=== PATIENT | female | born 1930 | race Hispanic/Latino ===

== ENCOUNTER 2019-04-21 21:04 | Inpatient (IN) | payer MEDICARE, BC, MEDICAID ==
[2019-04-21 22:09] LABS: ALT (SGPT) 21 U/L (8-55); AST (SGOT) 27 U/L (5-34); Albumin 3.4 g/dL (3.4-4.8); Alkaline Phosphatase 66 U/L (40-150); Anion Gap 12 mmol/L (10-20); BUN (Urea Nitrogen) 70 mg/dL (9.8-20.1); Bilirubin, Total 0.2 mg/dL (0.2-1.2); Calc. Creatinine Clearance 0 mL/min (70-130); Calcium 9.2 mg/dL (7.8-10.44); Carbon Dioxide 15 mmol/L (23-31); Chloride 115 mmol/L (98-107); Estimated GFR-MDRD 39; Globulin 2.6 g/dL (2.4-3.5); Glucose 78 mg/dL (83-110); Potassium 6.2 mmol/L (3.5-5.1); Sodium 136 mmol/L (136-145)
--- NOTE | 2019-04-21 22:22 | RAD ---
3 views left hand: 04/21/2019 COMPARISON: None HISTORY: Pain FINDINGS: There is atherosclerotic calcification at the level of the wrist. Scattered degenerative ch anges are noted involving the distal interphalangeal joints, most prominently involving the fifth digit. There is mild degenerative change at the first metatarsal-phalangeal joint. There is no displaced fracture or evidence of dislocation seen. IMPRESSION: No acute osseous abnormality. Chronic findings as described above.
[2019-04-21 22:23] LABS: Anisocytosis SLIGHT = 6-15 cells (100X) (0-5/hpf); Band 16 % (5-11); Lymphocytes 33 % (21-51); MDiff Complete? YES; Mean Corpuscular HGB CONC 30.1 g/dL (32.0-36.0); Mean Corpuscular Hemoglobin 35.6 pg (27.0-31.0); Mean Platelet Volume 7.6 fL (7.4-10.4); Monocytes 7 % (0-10); Neutrophil 43 % (42-75); Nucleated RBC 3 % (0); Platelet Count 245 thou/uL (130-400); Platelet Morphology Comment Appears Adequate; RBC Distribution Width 14.8 % (11.5-14.5); Red Blood Cell (RBC) Count 1.68 mill/uL (4.20-5.40); White Blood Cell (WBC) Count 3.3 thou/uL (4.8-10.8)
--- NOTE | 2019-04-21 22:24 | RAD ---
2 views left forearm: 04/21/2019 COMPARISON: None HISTORY: Pain FINDINGS: No fracture or dislocation. No radiopaque foreign body or subcutaneous gas. There is extens nancy atherosclerotic calcification within the left forearm. IMPRESSION: No acute findings.
--- NOTE | 2019-04-21 22:24 | RAD ---
2 views left humerus: 04/21/2019 COMPARISON: None HISTORY: Pain FINDINGS: No fracture or dislocation. No radiopaque foreign body or subcutaneous gas. There is an inc ompletely imaged transvenous pacing device. IMPRESSION: No acute findings.
[2019-04-21 22:32] LABS: CKMB 15.2 ng/mL (0-6.6)
[2019-04-22] MEDS ORDERED: Calcium Gluconate 4.6 MEQ in Sodium Chloride 0.9% 100 ML IVPB SCH (00:56)
[2019-04-22] MEDS ORDERED: Dextrose 50% Abboject 50 ML SYRINGE SLOW IVP SCH ×2 (00:58→13:00)
[2019-04-22 01:49] LABS: Troponin I 0.034 ng/mL (< 0.028)
[2019-04-22 01:53] LABS: Bacteria/HPF 4+ HPF (None Seen); Bilirubin Negative (Negative); Blood, Urine Negative (Negative); Clarity Turbid (Clear); Glucose, Urine (Dipstick) Normal (Negative); Leukocyte 500 Leu/uL (Negative); Nitrite Negative (Negative); Protein, Urine (Dipstick) 10 mg/dL (Neg-Trace); RBC/HPF 0-3 HPF (0-3); Squamous Epithelial None Seen HPF (0-3); WBC/HPF Greater than 50 HPF (0-3); Yeast-Budding 1+ HPF (None Seen)
[2019-04-22] MEDS ORDERED: Ondansetron PF 4 MG/2 ML Vial IVP PRN (04:06)
[2019-04-22] MEDS ORDERED: Acetaminophen 650 MG Suppository PR PRN (04:06)
[2019-04-22] MEDS ORDERED: Acetaminophen 325 MG TAB PO PRN (04:06)
[2019-04-22] MEDS ORDERED: Ondansetron ODT 4 MG TAB PO PRN (04:06)
[2019-04-22] MEDS ORDERED: HumaLOG 300 UNITS/3 ML VIAL SC PRN (04:08)
[2019-04-22] MEDS ORDERED: Dextrose 5% in Water 1,000 ML IV PRN (04:08)
[2019-04-22 04:22] LABS: Troponin I 0.023 ng/mL (< 0.028)
[2019-04-22] MEDS: cefTRIAXone\\ROCEPHIN 1 GM in Sodium Chloride 0.9% 100 ML IVPB SCH (06:21)
[2019-04-22 07:02] VITALS: BMI 24.0
[2019-04-22] MEDS ORDERED: Enoxaparin Sodium 40 MG/0.4 ML SYRINGE SC SCH ×2 (09:00)
[2019-04-22 10:46] LABS: Reticulocyte Count 3.3 % (0.5-1.5)
--- NOTE | 2019-04-22 10:46 | RAD ---
PORTABLE CHEST: HISTORY: Respiratory distress. COMPARISON: 06/13/2014 study. FINDINGS: Heart size is enlarged. There are postop sternotomy changes and a pacemaker present. There is some linear scarring in the left base. There is no focal infiltrative process or signs of failure. The b ones are demineralized. IMPRESSION: Cardiomegaly with some chronic lung change, stable chest. POS: [facility]
[2019-04-22 11:05] LABS: Anion Gap 13 mmol/L (10-20); BUN (Urea Nitrogen) 68 mg/dL (9.8-20.1); Calc. Creatinine Clearance 22 mL/min (70-130); Calcium 8.8 mg/dL (7.8-10.44); Carbon Dioxide 12 mmol/L (23-31); Chloride 119 mmol/L (98-107); Estimated GFR-MDRD 37; Glucose 64 mg/dL (83-110); Iron 62 ug/dL (50-170); Iron Binding Capacity, Total 238 mcg/dL (265-497); Potassium 5.9 mmol/L (3.5-5.1); Sodium 138 mmol/L (136-145)
[2019-04-22 11:09] LABS: Anisocytosis SLIGHT = 6-15 cells (100X) (0-5/hpf); Band 17 % (5-11); Burr Cells SLIGHT = 2-5 cells (100X) (0-1/hpf); Hemoglobin 9.1 g/dL (12.0-16.0); Lymphocytes 16 % (21-51); MDiff Complete? YES; Mean Corpuscular Hemoglobin 32.9 pg (27.0-31.0); Mean Platelet Volume 8.1 fL (7.4-10.4); Monocytes 4 % (0-10); Neutrophil 63 % (42-75); Platelet Count 187 thou/uL (130-400); Poikilocytosis SLIGHT = 6-15 cells (100X) (0-5/hpf); RBC Distribution Width 19.9 % (11.5-14.5); Red Blood Cell (RBC) Count 2.75 mill/uL (4.20-5.40); White Blood Cell (WBC) Count 4.4 thou/uL (4.8-10.8)
[2019-04-22 11:29] LABS: Ferritin 56.18 ng/mL (10-291); Free T4 (Free Thyroxine) 0.78 ng/dL (0.70-1.48)
[2019-04-22 11:44] LABS: Folate (Folic Acid) 15.5 ng/mL (7.0-31.4)
[2019-04-22] MEDS ORDERED: Insulin Regular 300 UNITS/3 ML VIAL IVP SCH (12:45)
[2019-04-22] MEDS ORDERED: Albuterol Sulfate 2.5 mg/3 ml Neb NEB SCH (12:45)
--- NOTE | 2019-04-22 13:43 | HP ---
PRIMARY CARE PROVIDER: Dr. Rogelio Singh. CHIEF COMPLAINT: Decreased hemoglobin. HISTORY OF PRESENT ILLNESS: Ms. Hammond is an 88-year-old lady, who was seen at [facility] on April 22, 2019 after transfer from [facility]. She is currently unable to provide any history. Collateral history was obtained from review of medical record, discussion with emergency room physician and with the patient's son, Jeremiah by the bedside. Ms. Hammond has been at [facility] for the last 6 months. Over the last couple of months, she has been essentially bed bound and is ambulated with wheelchair. Her son reports that she holds conversation. She had blood work done yesterday and was found to have low hemoglobin. She was , therefore, sent to the emergency room. In the emergency room, she was found to be hyperkalemic, hypothermic, hypotensive, and anemic. She was referred to Hospitalist Service for further management and admission. REVIEW OF SYSTEMS: Could not be completed. PAST MEDICAL HISTORY: Coronary artery disease, status post coronary artery bypass graft in 2004, diabetes mellitus type 2, hypertension, hypothyroidism, dyslipidemia, and degenerative joint disease. PAST SURGICAL HISTORY: Coronary artery bypass graft, left carpal tunnel surgery , hernia repair, hysterectomy, and pacemaker placement. ALLERGIES: NO KNOWN DRUG ALLERGIES. CURRENT MEDICATIONS: These need to be clarified, but appeared to include: 1. [place]. 2. Calcium carbonate. 3. Plavix. 4. Ezetimibe/simvastatin. 5. Ferrous gluconate. 6. Fish oil. 7. Levothyroxine. 8. Metformin. 9. Nifedipine. 10. Pioglitazone. 11. Sitagliptin. SOCIAL HISTORY: No history of tobacco use, alcohol use, or recreational drug use. FAMILY HISTORY: No family history of premature coronary artery disease. CODE STATUS: I discussed her code status with her son, Jeremiah. She is full code. PHYSICAL EXAMINATION: GENERAL: On examination, Ms. Hammond is sleepy, not waking up to voice or touch. VITAL SIGNS: Blood pressure is 122/45, pulse 60, respiratory rate 13, and oxygen saturation 100% on room air. She is hypothermic, with a temperature of 97.3 degrees Fahrenheit. EYES: No scleral icterus. No conjunctival pallor. ENT: Dry mucosal membranes. No oropharyngeal erythema or exudates. NECK: Supple and nontender. Trachea is midline. RESPIRATORY: Accessory muscles of breathing are not active. Chest wall movements are symmetric bilaterally. Lungs are clear to auscultation without wheeze, rhonchi, or crepitations. CARDIOVASCULAR: S1 and S2 are heard, regular. Peripheral pulses palpable. No carotid bruit. No pericardial rub. ABDOMEN: Soft, nontender, bowel sounds heard. NEUROLOGIC: Full neurologic examination was not possible secondary to the patient's noncooperation. There is no facial droop. The patient is moving all 4 extremities. Deep tendon reflexes 2+, plantars downgoing bilaterally. MUSCULOSKELETAL: The patient is moving all 4 extremities. SKIN: No rashes or subcutaneous nodules. LYMPHATIC: No cervical lymphadenopathy. PSYCHIATRIC: Unable to assess mood, affect, or orientation to person, place, or time. LABORATORY DATA: Labs and investigations were reviewed. I reviewed her electrocardiogram, which shows atrial paced rhythm, no ST changes to suggest an acute coronary syndrome. I also reviewed her chest x-ray, which does not show any pulmonary infiltrates. She has cardiomegaly. She has leukopenia with 3300 white cells, macrocytic anemia with hemoglobin 6, normal platelet count, normal sodium , elevated potassium of 6.2, elevated blood urea nitrogen of 70, elevated creatinine of 1.30, normal lactic acid, normal LFTs and indeterminate troponin-I of 0.034. TSH is elevated at 7.5115. Lactic acid is normal. Urinalysis is positive for leukocyte esterase, bacteria and yeast. ASSESSMENT AND PLAN: Ms. Hammond is a pleasant 88-year-old lady, who was seen at [facility] on April 22, 2019. Her problem list includes: 1. Sepsis: Ms. Hammond is presenting with sepsis, most likely secondary to urinary tract infection. She will be admitted to the hospital for further management. We will provide her with intravenous hydration. She is on a Benji Hugger blanket for hypothermia. 2. Urinary tract infection: She has been started on ceftriaxone, which I will continue. We will await urine cultures. 3. Hyperkalemia: We will recheck potassium. If hyperkalemia is true, we will provide Kayexalate, insulin and beta agonists. 4. Diabetes mellitus, type 2: We will start the patient on Accu-Cheks and insulin sliding scale. 5. Indeterminate troponin: Most likely secondary to demand ischemia, we will trend troponins. 6. Hypothyroidism: TSH is elevated. We will check free T4 and adjust Synthroid dose if needed. 7. Dyslipidemia: We will continue statin after clarifying home medications. 8. Anemia: Chronicity is unclear. We will check iron studies. We will also check reticulocyte count. We will check vitamin B12 and folic acid levels. Further workup depending on the outcome of this test. Many thanks for allowing me to participate in your patient's care. Please feel free to contact me with any questions or concerns. LEVEL OF RISK: High. LEVEL OF COMPLEXITY: High. Job ID: [id number] MTDD
[2019-04-22] MEDS: Dextrose 50% Abboject 50 ML SYRINGE SLOW IVP PRN (13:49)
[2019-04-22] MEDS ORDERED: Cyanocobalamin 1000 MCG/ML VIAL IM SCH (14:15)
[2019-04-22] MEDS ORDERED: Furosemide 40 MG/4 ML VIAL SLOW IVP SCH (14:15)
--- NOTE | 2019-04-22 14:46 | CON ---
DATE OF CONSULTATION: 04/22/2019 SERVICE: Pulmonary Medicine. REASON FOR CONSULTATION: ICU patient. HISTORY OF PRESENT ILLNESS: The patient is an 88-year-old female, who lives in the [place]. She has very poor functional status at baseline. She lives in a bed, and sometimes she gets into a wheelchair in order to get to meals. That being said, she requires one and sometimes two people to assist her at baseline. In this usual state of health, she started having increasing mental status changes when brought to the emergency department. She was found to be anemic. Overnight, she was given some blood. She had an appropriate rise in her hemoglobin with that blood. She had a urinary tract infection and was possibly consistent with the UTI. As such, she was given some medications for that. She remains a little bit encephalopathic. She cannot provide additional elements of the history at this point. She had no complaints of shortness of breath. PAST MEDICAL HISTORY: 1. Coronary artery disease. 2. Type 2 diabetes mellitus. 3. Hypertension. 4. Dyslipidemia. 5. Hypothyroidism. 6. Degenerative joint disease. PAST SURGICAL HISTORY: 1. Coronary artery bypass graft. 2. Carpal tunnel surgery, left. 3. Herniorrhaphy. 4. Hysterectomy. 5. Pacemaker placement. FAMILY HISTORY: Noncontributory. SOCIAL HISTORY: She lives in the [place]. She has no exposure to chemicals, dust , asbestos, or tuberculosis currently. ALLERGIES: NO KNOWN DRUG ALLERGIES. MEDICATIONS: List of her inpatient medications was reviewed and heavily modified. REVIEW OF SYSTEMS: This cannot be obtained as the patient is encephalopathic. PHYSICAL EXAMINATION: VITAL SIGNS: Afebrile. She is actually hypothermic yesterday with a temperature of 96.7. Pulse 62, blood pressure 112/53, respirations 14, and saturation 99% on room air. GENERAL: The patient is encephalopathic. She appears to be in no distress. HEENT: Normocephalic and atraumatic. Sclerae white. Conjunctivae pink. Oral mucosa is moist without lesions. LUNGS: Decent air entry. Extensive crackling is present. There is no prolonged expiratory phase or wheezing appreciated. HEART: Normal rate. Regular. ABDOMEN: Soft, nontender, and nondistended. Bowel sounds are positive. MUSCULOSKELETAL: No cyanosis or clubbing. There is 3+ pitting throughout. NEUROLOGIC: Grossly nonfocal. She demonstrates diffuse encephalopathy. LABORATORY DATA: WBC 4.4, hemoglobin 9.1 (above 6.0, baseline 9). WBC 4.4, platelets 187,000. Band count is 17% on top of 63% neutrophils. Creatinine 1.34 (baseline 1.1). Liver function studies are otherwise unremarkable. Troponin is downtrending to 0.023. T4 0.7, folate 15, B12 of 350, and TSH 7.5. Blood sugar is 60. Urinalysis is positive for leukocyte esterase, and significant pyuria with 4+ bacteria. Urine culture is negative to date. Stool for occult blood is unremarkable. IMAGING STUDIES: Forearm x-ray, hand x-ray and humerus x-ray are negative for acute osseous abnormalities. Chest x-ray demonstrates no acute cardiopulmonary abnormalities. ASSESSMENT: 1. Acute hypoxic respiratory failure. 2. Severe sepsis. 3. Urinary tract infection. 4. Anemia, likely chronic. 5. Hvj-EG-acoxeshlc myocardial infarction, resolved. DISCUSSION AND PLAN: I will give the patient a couple doses of Lasix as she is profoundly volume overloaded and just got 2 units of blood. We will continue our empiric antibiotics directed urinary tract infections. We will trend the potassium through time to make certain it is trending downward. Pulmonary/Critical Care will continue to follow very closely. She will need to remain in the IMCU for the time being. I will give her a dose of vitamin B12. 70 minutes have been devoted to this patient in various activities. I personally reviewed all imaging studies and laboratory data noted within this document. For fifty percent of this time, I was interacting with the patient at the bedside or coordinating care with the care team. For the remainder of the time I was immediately available to the patient in the hospital unit. Job ID: [id number] [facility]
[2019-04-22 16:17] LABS: Potassium 5.8 mmol/L (3.5-5.1)
[2019-04-22] MEDS: Heparin 5,000 UNITS/ML VIAL SC SCH (20:18)
[2019-04-23] MEDS: Dextrose 50% Abboject 50 ML SYRINGE SLOW IVP PRN (00:14)
[2019-04-23] MEDS: cefTRIAXone\\ROCEPHIN 1 GM in Sodium Chloride 0.9% 100 ML IVPB SCH (02:47)
[2019-04-23] MEDS ORDERED: Furosemide 40 MG/4 ML VIAL SLOW IVP SCH ×2 (06:00→15:00)
[2019-04-23 06:36] LABS: Anion Gap 12 mmol/L (10-20); BUN (Urea Nitrogen) 65 mg/dL (9.8-20.1); Calc. Creatinine Clearance 21 mL/min (70-130); Calcium 9.5 mg/dL (7.8-10.44); Carbon Dioxide 16 mmol/L (23-31); Chloride 118 mmol/L (98-107); Estimated GFR-MDRD 36; Glucose 76 mg/dL (83-110); Magnesium 1.4 mg/dL (1.6-2.6); Phosphorus 4.2 mg/dL (2.3-4.7); Potassium 5.8 mmol/L (3.5-5.1); Sodium 140 mmol/L (136-145)
[2019-04-23 06:41] LABS: #Lymphocytes 1.2 thou/uL (1.20-3.40); #Monocytes 0.4 thou/uL (0.11-0.59); #Neutrophils 3.4 thou/uL (1.40-6.50); %Eosinophils 0.2 % (0.0-10.0); %Lymphocytes 23.1 % (21.0-51.0); %Monocytes 7.5 % (0.0-10.0); %Neutrophils 69.2 % (42.0-75.0); Anisocytosis SLIGHT = 6-15 cells (100X) (0-5/hpf); Hemoglobin 9.3 g/dL (12.0-16.0); MDiff Complete? YES; Macrocytosis SLIGHT = 6-15 cells (100X) (0-5/hpf); Mean Corpuscular HGB CONC 31.5 g/dL (32.0-36.0); Mean Corpuscular Hemoglobin 32.7 pg (27.0-31.0); Platelet Count 202 thou/uL (130-400); RBC Distribution Width 20.4 % (11.5-14.5); Red Blood Cell (RBC) Count 2.84 mill/uL (4.20-5.40)
[2019-04-23] MEDS: Heparin 5,000 UNITS/ML VIAL SC SCH (08:35)
[2019-04-23] MEDS ORDERED: Magnesium 2 GM/50 ML 2 GM in Premix Bag 1 BAG IVPB SCH (12:15)
[2019-04-23] MEDS ORDERED: Dextrose 5 %-0.45 % NaCl 1,000 ML IV SCH (12:15)
[2019-04-23] MEDS ORDERED: Magnesium Sulfate 2 GM in Sodium Chloride 0.9% 100 ML IVPB SCH (12:15)
--- NOTE | 2019-04-23 12:39 | PRG ---
DATE OF SERVICE: 04/23/2019 SERVICE: Pulmonary Medicine. INTERVAL HISTORY: The patient's blood pressure has firmed up very nicely. She has no complaints of chest pain, fevers, cough, nausea, or vomiting. She had an appropriate response to the hemoglobin from the blood from 2 days ago, and has not dropped back down. She cannot provide any additional elements of the history. Otherwise, there were no significant events. PHYSICAL EXAMINATION: VITAL SIGNS: Afebrile. Pulse 60, blood pressure 130/74, respirations 14, and saturation 100% on room air. GENERAL: The patient is encephalopathic, but at her baseline. HEENT: Normocephalic and atraumatic. Sclerae are white. Conjunctivae are pink. Oral mucosa is moist without lesions. LUNGS: Decent air entry. No crackles are present. HEART: Normal rate, regular. ABDOMEN: Soft, nontender, and nondistended. Bowel sounds are positive. MUSCULOSKELETAL: No cyanosis or clubbing. There is pitting in the bilateral lower extremities. LABORATORY DATA: WBC 5.0, hemoglobin 9.3, and platelets 202,000. Creatinine 1.4 and stable, BUN 65 and stable. Potassium 5.8, which remains elevated. Magnesium 1.4, phosphorus 4.2. Urinalysis is unremarkable. Blood cultures x2 are unremarkable. Urine culture is negative. ASSESSMENT: 1. Acute hypoxic respiratory failure, resolved. 2. Severe sepsis. 3. Urinary tract infection. 4. Anemia, chronic. 5. Mio-WU-wvehplzro myocardial infarction, resolved. DISCUSSION AND PLAN: We will continue supportive measures through time. The patient's potassium remains slightly elevated. I will replace the magnesium. From my perspective, the patient is stable for transition out of the ICU to the telemetry unit. Since we cannot place an NG tube currently, we can give her the Kayexalate by rectum. Job ID: [id number]
[2019-04-23 13:02] LABS: Potassium 5.7 mmol/L (3.5-5.1)
[2019-04-23] MEDS ORDERED: Morphine 2 MG/ML SYRINGE SLOW IVP PRN (15:16)
--- NOTE | 2019-04-23 16:39 | PDOC.PN ---
- Subjective Encounter Start Date: 04/23/19 Encounter Start Time: 10:20 Pt seen for followup re: sepsis. Pt is not answering questions, unable to complete ROS. - Objective Resuscitation Status - Order Detail: 04/23/19 11:47 Resuscitation Status Routine Resuscitation Status: DNAR: NO Resuscitation Discussed with: susan ROWLEY Reviewed: Yes Vital Signs & Weight: Vital Signs (12 hours) Temp Resp Pulse Ox 04/23/19 12:00 12 04/23/19 11:16 97.6 F 04/23/19 08:05 100 04/23/19 07:27 97.6 F Weight Admit Weight 103 lb 6.4 oz Weight 103 lb 6.4 oz Most Recent Monitor Data Heart Rate from ECG 60 NIBP 112/52 NIBP BP-Mean 72 Respiration from ECG 11 SpO2 100 I&O: 04/22/19 04/23/19 04/24/19 06:59 06:59 06:59 Intake Total 0 100 Output Total 900 900 Balance 0 -800 -900 Result Diagrams: 04/23/19 06:01 04/23/19 12:12 Additional Labs: Accuchecks 04/23/19 04/23/19 04/23/19 10:36 05:34 01:18 POC Glucose 73 74 144 H 04/23/19 04/22/19 00:01 16:40 POC Glucose 54 L* 115 H EKG Reviewed by me: Yes (Tele: NSR) Phys Exam - Physical Examination Constitutional: NAD Dry mucosae Neck: supple Respiratory: clear to auscultation bilateral Cardiovascular: RRR Gastrointestinal: soft Neurological: moves all 4 limbs Deviation from normal: Unable to assess Dx/Plan (1) Sepsis Code(s): A41.9 - SEPSIS, UNSPECIFIED ORGANISM Status: Acute Comment: secondary to UTI (2) UTI (urinary tract infection) Status: Acute Comment: on IV antibiotics (3) Anemia Code(s): D64.9 - ANEMIA, UNSPECIFIED Status: Acute Comment: s/p pRBC transfusion - Plan * . Goals of care now for comfort measures only. All active treatments to be discontinued. Hospice service will reassess tomorrow. Review of Systems - Medications/Allergies Allergies/Adverse Reactions: Allergies Allergy/AdvReac Type Severity Reaction Status Date / Time No Known Drug Allergies Allergy Verified 04/22/19 08:00 Medications: Current Medications Acetaminophen (Tylenol) 650 mg PO Q4H PRN PRN Reason: Headache/Fever/Mild Pain (1-3) Acetaminophen (Tylenol) 650 mg NE Q4H PRN PRN Reason: Headache/Fever/Mild Pain (1-3) Furosemide (Lasix) 40 mg SLOW IVP 1500 MACKENZIE Stop: 04/23/19 17:00 Last Admin: 04/23/19 15:01 Dose: 40 mg Dextrose/Water (D5w) 1,000 mls @ 0 mls/hr IV .Q0M PRN PRN Reason: Hypoglycemia Morphine Sulfate (Morphine) 2 mg SLOW IVP Q4H PRN PRN Reason: Moderate to Severe Pain (6-10) Ondansetron HCl (Zofran) 4 mg IVP Q6H PRN PRN Reason: Nausea/Vomiting
--- NOTE | 2019-04-23 16:44 | PDOC.FMACP ---
Advance Care Planning - Problem (1) Sepsis Status: Acute Code(s): A41.9 - SEPSIS, UNSPECIFIED ORGANISM (2) UTI (urinary tract infection) Status: Acute (3) Anemia Status: Acute Code(s): D64.9 - ANEMIA, UNSPECIFIED - Note Participants: family Summary: Advanced Care Planning was discussed. The diagnosis, prognosis and goals of care were discussed. Appropriate forms and documentation to accomplish the goals of care were discussed. All questions were answered. The Palliative Care Team is engaged to assist with completion of any outstanding forms that are needed. Time Spent (mins): 20
[2019-04-24 10:52] VITALS: BP 98/62; TEMP 97.5
--- NOTE | 2019-04-24 10:56 | PRG ---
DATE OF SERVICE: 04/24/2019 SERVICE: Pulmonary Medicine. INTERVAL HISTORY: The patient is doing really well from respiratory standpoint. She cannot provide any additional elements of the history. Late yesterday evening, the patient talked to Palliative Care. Ultimately, she and the family had decided transitioning over to comfort care only. As such, all interventions were discontinued including labs and imaging studies. Medications were discontinued and she is going to be comfort care only from this point forward. They do appreciate and that mean, she will be passing away at some point during this hospital stay. If she continues to do well, she may be discharged under the care of hospice. PHYSICAL EXAMINATION: VITAL SIGNS: Afebrile, pulse 62, blood pressure 106/75, respirations 12, and saturation 100% on room air. GENERAL: The patient is awake. She appears comfortable. She is in no apparent distress. HEENT: Normocephalic and atraumatic. Sclerae are white. Conjunctivae are pink. Oral mucosa is dry. LUNGS: Decent air entry. Minimal rhonchi are present. No crackles or wheezing appreciated. HEART: Normal rate, regular. ABDOMEN: Soft, nontender, and nondistended. Bowel sounds are positive. MUSCULOSKELETAL: No cyanosis or clubbing. There is trace pitting in bilateral lower extremities. NEUROLOGIC: Grossly nonfocal. ASSESSMENT: 1. Acute hypoxic respiratory failure, resolved. 2. Severe sepsis. 3. Urinary tract infection. 4. Non-ST elevation myocardial infarction secondary to demand. 5. Anemia, chronic. 6. Advanced age with severe debility. DISCUSSION AND PLAN: The patient is going to be comfort care only. At this point, she has no further requirements for Pulmonary/Critical Care opinion and I will sign off. Please call with additional questions or concerns through time. Job ID: [id number]
--- NOTE | 2019-04-24 15:34 | PDOC.PALCO ---
Palliative Care Consult - Consult Details Requesting Physician: Dr Mathew Reason for Consult: goals of care, assistance with communication prognosis/ disease Family Members Present: Several family members including patient son - Pertinent HPI 88 year old female recently admitted to the emergency room for evaluation from [facility]. Admitted to the hospital as patient was found to be hyperkalemic, hypothermic, and hypotensive in the emergency room. - Pertinent PMH CAD, DM II, Hypertension, Hypothyroid, DJD, history of atrial fib/pacemaker placement. - Social History Smoking Status: Never smoker Smoking: no tobacco exposure Alcohol Use: none Drug Use History: none Living Situation: jail resident - Medications MAR Reviewed: Yes - Allergies Allergies/Adverse Reactions: Allergies Allergy/AdvReac Type Severity Reaction Status Date / Time No Known Drug Allergies Allergy Verified 04/22/19 08:00 - Subjective Paitent resting, family at bedside. No distress. Family has transitioned to comfort measures and patient is a DNAR. [facility] to re-evaluate patient today to determine if she is appropriate for transfer to inpatient facility. - Objective Vital Signs: Vital Signs - Most Recent Temp Pulse Resp BP Pulse Ox 97.5 F L 68 12 98/62 100 04/24/19 10:47 04/24/19 10:47 04/24/19 10:47 04/24/19 10:47 04/24/19 10:47 Palliative Performance Scale: 20 - Advance Directives Medical Power of Wic Site Coordinator: Paitent on - Physical Exam Constitutional: confusion HEENT: moist MMs, EOMI Respiratory: unlabored breathing Cardiovascular: RRR Gastrointestinal: soft, non-tender, positive bowel sounds Neurological: non-focal Deviation from normal: Confused, lethargic - Problem List (1) Palliative care encounter Code(s): Z51.5 - ENCOUNTER FOR PALLIATIVE CARE Status: Acute (2) Physical deconditioning Code(s): R53.81 - OTHER MALAISE Status: Acute (3) Anemia Code(s): D64.9 - ANEMIA, UNSPECIFIED Status: Acute - Plan/Recommendations Plan: [facility]. Family is electing to seek only comfort measures for patient and not seek any further treatment. Theraputic listening and validation of family's thought process and decisions [60] minutes spent on this encounter with >50% of the time in counseling and coordination of care. Thank you for this very appropriate consult.
--- NOTE | 2019-04-24 17:44 | DIS ---
DATE OF ADMISSION: 04/22/2019 DATE OF DISCHARGE: 04/24/2019 DISCHARGE DISPOSITION: Inpatient Hospice. The patient's care will be taken over by Dr. Reyes. DISCHARGE DIAGNOSES: 1. Sepsis, likely due to urinary tract infection. 2. Hypothermia due to sepsis. 3. Acute on chronic anemia, unknown cause. 4. Acute hypoxic respiratory failure. 5. Hyperkalemia. 6. Renal insufficiency. 7. Advanced age with severe debility. DISCHARGE MEDICATIONS: As per the hospice. PRIMARY CARE PHYSICIAN: Dr. Rogelio Singh. IN-HOUSE CONSULTATION: Pulmonary Medicine, Dr. Mathew and Palliative Care Team. HISTORY OF PRESENTING ILLNESS: Ms. Hammond is an 88-year-old female, who is a resident of [facility] and is essentially bedbound, who was brought in for complaints of abnormal labs. She had a blood work done as an outpatient and was found to have low hemoglobin. In the ER, she was found to be hyperkalemic, hypothermic, hypotensive, and severely anemic and was admitted to CCU side with a presumptive diagnosis of sepsis due to urinary tract infection. Pulmonary Critical Care Medicine was consulted and she was started on IV fluids and IV antibiotics appropriately. Please see H and P dictated by Dr. Solomon Whiting on 04/22/2019. HOSPITAL COURSE: The patient had x-rays done of her hand, forearm, and humerus, which were negative for any fractures. She was seen by Dr. Mathew in the critical care unit and was stabilized by him as well. She was also found to have non-ST elevation RI, likely demand ischemia from the sepsis. Electrolyte imbalances were adjusted and she was warmed up. Eventually, the patient did not do very well and family was concerned that she has expressed wishes to not be resuscitated or undergo any aggressive measures. Because of that, she was made comfort care and eventually, hospice was consulted. The patient had stopped taking anything orally and has not been really waking. Medications were interrupted and she was accepted by hospice for inpatient facility this morning. Transfer of care will be done and she will be discharged from Internal Medicine Services. She was seen and examined prior to discharge. PHYSICAL EXAMINATION: VITAL SIGNS: This morning, vital signs; temperature 97.5, heart rate 68, blood pressure 98/62. GENERAL: She is lying comfortably in bed and is not awake and rather unresponsive. HEENT: Mucous membrane is dry. CHEST: Clear to auscultation bilaterally. HEART: Rate and rhythm are regular. LABORATORY DATA: Her urine culture is growing E coli and Klebsiella. DISCHARGE PLAN: Discharge plan was discussed with multiple family members including son, daughter, and other family members at bedside. They understand and want their mother to be transitioned to hospice and comfort care only. TOTAL TIME SPENT: 32 minutes. Job ID: [id number]
== END 2019-04-24 14:53 | disposition hospice, inpatient (51) | DRG 871 ==
LOC: ERS 21:04 → IMCU/EMU 04-22 00:15 → T4-B 04-23 17:28
PROVIDERS: ADMIT Hospitalist; ATTEND Hospitalist
PROC: 30233N1 Transfusion of Nonautologous Red Blood Cells into Peripheral Vein, Percutaneous Approach (ICD-10-PCS; principal; 2019-04-21)
DX: A41.9 Sepsis, unspecified organism (principal); J96.01 Acute respiratory failure with hypoxia; I21.A1 Myocardial infarction type 2; N39.0 Urinary tract infection, site not specified; Z66 Do not resuscitate; Z51.5 Encounter for palliative care; E87.5 Hyperkalemia; E11.9 Type 2 diabetes mellitus without complications; E03.9 Hypothyroidism, unspecified; E78.5 Hyperlipidemia, unspecified; D64.9 Anemia, unspecified; I25.10 Atherosclerotic heart disease of native coronary artery without angina pectoris; I10 Essential (primary) hypertension; M19.90 Unspecified osteoarthritis, unspecified site; R65.20 Severe sepsis without septic shock; N28.9 Disorder of kidney and ureter, unspecified; B96.20 Unspecified Escherichia coli [E. coli] as the cause of diseases classified elsewhere; B96.1 Klebsiella pneumoniae [K. pneumoniae] as the cause of diseases classified elsewhere; Z95.1 Presence of aortocoronary bypass graft; Z90.710 Acquired absence of both cervix and uterus; Z95.0 Presence of cardiac pacemaker; Z74.01 Bed confinement status
CPT/HCPCS: 36415; 36416; 36430; 51701; 71045; 80048; 80053; 81003; 81015; 82274; 82553; 82607; 82728; 82746; 83540; 83550; 83605; 83735; 84100; 84439; 84443; 84484; 85025; 85046; 86850; 86900; 86901; 87040; 87077; 87086; 87186; 93005; 94640; 96365; A4353; J0696; J1644; J1650; J1940; J2270; J3420; J3475; J3490; J7611; P9016